=== PATIENT | male | born 1955 | race Caucasian/White ===

== ENCOUNTER → 2018-01-19 | Outpatient (CLI) | payer BC ==
[~2018-01-19] MED LIST: NORVASC 5MG5 MG/TAB PO; ZIAC 10/6.25M1 UDTAB PO
== END ==
LOC: MHCPAIN 12:55
DX: G89.29 Other chronic pain (principal); M47.27 Other spondylosis with radiculopathy, lumbosacral region; M48.061 Spinal stenosis, lumbar region without neurogenic claudication; M53.3 Sacrococcygeal disorders, not elsewhere classified
CPT/HCPCS: G0463

== ENCOUNTER → 2018-02-11 | Outpatient (CLI) | payer BC | LOC: MHCPAIN 12:42 | DX: M47.817 Spondylosis without myelopathy or radiculopathy, lumbosacral region (principal); M48.07 Spinal stenosis, lumbosacral region | CPT/HCPCS: J1040; Q9967 ==

== ENCOUNTER → 2018-02-25 | Outpatient (CLI) | payer BC | LOC: MHCPAIN 15:02 | DX: G89.29 Other chronic pain (principal); M47.817 Spondylosis without myelopathy or radiculopathy, lumbosacral region; M54.16 Radiculopathy, lumbar region; M53.3 Sacrococcygeal disorders, not elsewhere classified | CPT/HCPCS: G0463 ==

== ENCOUNTER → 2018-05-26 | Outpatient (CLI) | payer BC | LOC: MHCPAIN 14:51 | DX: G89.29 Other chronic pain (principal); M47.817 Spondylosis without myelopathy or radiculopathy, lumbosacral region; M54.16 Radiculopathy, lumbar region; M53.3 Sacrococcygeal disorders, not elsewhere classified | CPT/HCPCS: G0463 ==

== ENCOUNTER 2024-06-03 12:15 | Emergency (ER) | payer BC ==
[~2024-06-03] VITALS: Ht 177.8 cm; Wt 102.3 kg
[2024-06-03 12:22] VITALS: TEMP 98.1
[2024-06-03] MEDS ORDERED: PERCOCET 325 MG1 TA2 PO (12:50)
[2024-06-03] MEDS ORDERED: Ketorolac 30 MG/ML VIAL IM ONE (13:00)
[2024-06-03] MEDS ORDERED: oxyCODONE/Acetaminophen 10-325 MG TAB PO ONE (13:00)
[2024-06-03 13:32] VITALS: BP 141/82; PULSE 61
== END 2024-06-03 13:32 | disposition home or self-care (01) ==
LOC: COL.ER 12:15
DX: M54.50 Low back pain, unspecified (principal); G89.29 Other chronic pain
CPT/HCPCS: J1885; J2360

== ENCOUNTER → 2024-06-08 | Outpatient (CLI) | payer BC ==
[~2024-06-08] MED LIST changes: +Iohexol 300 - 10 ML VIAL ONE; +Lidocaine PF 2% (20 MG/ML) 2 ML VIAL ONE; +PERCOCET 325 MG1 TA2 PO
== END ==
LOC: MHCPAIN 14:54
DX: M47.896 Other spondylosis, lumbar region (principal); M54.16 Radiculopathy, lumbar region; I10 Essential (primary) hypertension; E78.5 Hyperlipidemia, unspecified
CPT/HCPCS: G0463; J1100; Q9967

== ENCOUNTER → 2024-06-09 | Outpatient (CLI) | payer BC ==
[~2024-06-09] MED LIST changes: -Iohexol 300 - 10 ML VIAL ONE; -Lidocaine PF 2% (20 MG/ML) 2 ML VIAL ONE
== END ==
LOC: MHCPAIN 07:57
DX: M54.16 Radiculopathy, lumbar region (principal); M54.50 Low back pain, unspecified; I44.7 Left bundle-branch block, unspecified